=== PATIENT | female | born 2000 | race Two or more races ===

== ENCOUNTER 2022-04-14 20:24 | Emergency (ER) | payer MEDICAID, OTHER ==
[~2022-04-14] VITALS: Ht 165.1 cm; Wt 90.7 kg
--- NOTE | 2022-04-14 20:39 | NUR ---
DR. MEGAN DIEZ AT PT'S BEDSIDE
[2022-04-14] MEDS ORDERED: MORPHINE SULFATE INJ 4 MG/ML DISP.SYRIN ONE (20:45)
[2022-04-14] MEDS ORDERED: KETOROLAC TROMETHAMINE INJ 30 MG/ML VIAL ONE (20:45)
[2022-04-14] MEDS: MORPHINE SULFATE INJ 2 MG/ML DISP.SYRIN IM ONE (20:50)
[2022-04-14] MEDS: KETOROLAC TROMETHAMINE INJ 60 MG/2 ML VIAL IM ONE (20:50)
[2022-04-14] MEDS ORDERED: ONDANSETRON 4 MG TAB.RAPDIS ONE (20:57)
[2022-04-14] MEDS: ONDANSETRON 4 MG TAB.RAPDIS PO ONE (21:00)
[2022-04-14] MEDS ORDERED: IBUP-1955 PO (21:48)
[2022-04-14 21:52] VITALS: BP 98/61
--- NOTE | 2022-04-14 21:52 | NUR ---
Patient discharged to home in stable condition. Written and verbal after care instructions given. Patient verbalizes understanding of instruction.
[2022-04-15] MEDS ORDERED: CALC500T52 PO (17:33)
[2022-04-15] MEDS ORDERED: MULT-754 PO (17:33)
[2022-04-15] MEDS ORDERED: CHOL100043 PO (17:33)
== END 2022-04-14 21:52 | disposition home or self-care (01) ==
LOC: ER 20:26
DX: O90.89 Other complications of the puerperium, not elsewhere classified (principal); M54.50 Low back pain, unspecified
CPT/HCPCS: 96372 ×2; 99284; J1885; J2270; Q0162

== ENCOUNTER 2022-04-15 15:10 | Inpatient (IN) | payer MEDICAID, OTHER ==
[~2022-04-15] VITALS: Ht 165.1 cm; Wt 90.7 kg
[2022-04-15] MEDS: HEPARIN SODIUM, PORCINE 5000 UNITS/1 ML VIAL SQ SCH (02:17)
[~2022-04-15 15:10] MED LIST: IBUP-1955 PO
--- NOTE | 2022-04-15 16:14 | NUR ---
BIBS FOR C/O UPPER BACK PAIN 08/11. WAS SEEN FOR THE SAME REASON YESTERDAY. THE PATIENT GOT EPIDURAL 4 WEEKS AGO (WHEN GIVING ). THE PATIENT DENIES TRAUMA. WILL CONTINUE TO MONITOR THE PATIENT.
--- NOTE | 2022-04-15 16:15 | NUR ---
URINE COLLECTED AND SENT TO THE LAB
[2022-04-15] MEDS ORDERED: ONDANSETRON HCL/PF 4 MG/2 ML VIAL IVP ONE (16:30)
[2022-04-15] MEDS ORDERED: IV NS 0.9% 1,000 ML BAG IV ONE (16:30)
[2022-04-15] MEDS ORDERED: MORPHINE SULFATE INJ 4 MG/ML DISP.SYRIN IV ONE (16:30)
--- NOTE | 2022-04-15 16:33 | NUR ---
IV ESTABLIHSED R AC 20G. LABS DRAWN AND COLLECTED AT BEDSIDE.
[2022-04-15] MEDS ORDERED: ONDANSETRON HCL/PF 4 MG/2 ML VIAL ONE (16:36)
[2022-04-15] MEDS ORDERED: MORPHINE SULFATE INJ 4 MG/ML DISP.SYRIN ONE (16:37)
[2022-04-15 16:38] LABS: BILIRUBIN,URINE LARGE (NEGATIVE); COLOR,URINE DARK YELLOW (YELLOW); LEUKOCYTE ESTERASE ,URINE SMALL (NEGATIVE); NITRITE, URINE NEGATIVE (NEGATIVE); PH,URINE 6.5 (5.0-8.0); PROTEIN,URINE TRACE mg/dl (NEGATIVE); UGLUCOSE NEGATIVE (NEGATIVE)
--- NOTE | 2022-04-15 16:44 | NUR ---
URLTRASOUND AT BEDSIDE
[2022-04-15 16:45] LABS: BASOPHILS # (AUTO) 0.1 K/uL (0.0-0.2); BASOPHILS % (AUTO) 1.3 % (0.0-2.0); EOSINOPHILS % (AUTO) 3.3 % (0.0-6.0); HEMATOCRIT 37 % (33-45); HEMOGLOBIN 12.5 g/dL (11.5-14.8); LYMPHOCYTES # (AUTO) 1.9 K/uL (0.8-4.8); LYMPHOCYTES % (AUTO) 19.7 % (20.0-44.0); MEAN CORPUSCULAR HGB CONC 33 g/dl (31.0-36.0); MEAN CORPUSCULAR VOLUME 86 fL (82-100); MONOCYTES # (AUTO) 0.6 K/uL (0.1-1.30); MONOCYTES % (AUTO) 5.8 % (2.0-12.0); NEUTROPHILS # (AUTO) 6.8 K/uL (1.8-8.9); NEUTROPHILS % (AUTO) 69.9 % (43.0-81.0); PLATELET COUNT (AUTO) 385 K/uL (150-450); RED BLOOD CELL COUNT(AUTO) 4.34 MIL/uL (4.0-5.2); WHITE BLOOD COUNT (AUTO) 9.7 K/uL (4.3-11.0)
[2022-04-15 16:53] LABS: CALCIUM, SERUM 8.7 mg/dL (8.5-10.1); CREATININE 0.7 mg/dL (0.6-1.3); POTASSIUM 3.9 mmol/L (3.5-5.1)
[2022-04-15 16:57] LABS: BACTERIA,URINE Many /HPF (None Seen); SQUAMOUS EPITHELIAL CELL,UR Many /HPF (None Seen)
[2022-04-15 16:59] LABS: BILIRUBIN,DIRECT 4.5 mg/dL (0.0-0.2); BILIRUBIN,TOTAL 5.4 mg/dL (0.2-1.0); TOTAL PROTEIN, SERUM 7.1 g/dL (6.4-8.2)
[2022-04-15 17:05] LABS: ALBUMIN 3.5 g/dL (3.4-5.0)
--- NOTE | 2022-04-15 17:05 | NUR ---
COVID TEST COLLECTED AND SENT
[2022-04-15] MEDS ORDERED: CALC500T52 PO (17:33)
[2022-04-15] MEDS ORDERED: MULT-754 PO (17:33)
[2022-04-15] MEDS ORDERED: CHOL100043 PO (17:33)
[2022-04-15] MEDS ORDERED: ONDANSETRON HCL/PF 4 MG/2 ML VIAL IVP PRN (18:30)
[2022-04-15] MEDS ORDERED: ACETAMINOPHEN 325 MG TABLET PO PRN (18:30)
--- NOTE | 2022-04-15 21:11 | NUR ---
FAXED CT RESULT TO [facility] AT [phone]
--- NOTE | 2022-04-15 21:45 | NUR ---
LADARIUS DILLON SPOKE TO DR TRISTAN REGARDING PATIENT'S STATUS AND CT AND REC'D VERBAL AUTH TO KEEP THE PT HERE
[2022-04-16] MEDS ORDERED: CEFTRIAXONE 1 G in IV D5W 50 ML IV SCH ×2 (00:58→23:00)
--- NOTE | 2022-04-16 00:59 | NUR ---
REPORT GIVEN TO RN
--- NOTE | 2022-04-16 01:02 | NUR ---
PATIENT BEING TRANSFERRED TO [facility]
--- NOTE | 2022-04-16 01:40 | NUR ---
ADMISSION 21 years old female A/O x4. Skin intact, ambulatory. [place] to room, unit, staff. Education given on use of call light, verbalized understanding.
[2022-04-16] MEDS: IV NS 0.9% 1,000 ML IV SCH ×2 (01:42→18:48)
[2022-04-16 01:46] VITALS: BP 103/60
[2022-04-16] MEDS ORDERED: CEFTRIAXONE 1 G VIAL ONE (02:06)
--- NOTE | 2022-04-16 02:18 | NUR ---
HEPARIN INJECTION Heparin injection non administered, patient plan possible MRCP. Order Heparin inject due at 2100 04/15/22 and not administer in ER. Patient arrived to unit at 0140 on 04/16/22.
[2022-04-16 06:16] LABS: BILIRUBIN,TOTAL 4.6 mg/dL (0.2-1.0); CALCIUM, SERUM 8.4 mg/dL (8.5-10.1); CREATININE 0.7 mg/dL (0.6-1.3); MAGNESIUM 2.1 mg/dL (1.8-2.4); PHOSPHORUS 4.4 mg/dL (2.5-4.9); POTASSIUM 3.9 mmol/L (3.5-5.1); TOTAL PROTEIN, SERUM 6.4 g/dL (6.4-8.2)
--- NOTE | 2022-04-16 06:33 | NUR ---
END OF SHIFT REPORT Patient is A/O x4. On room air, in no acute distress. Ambulatory. No c/o pain at this time. On IV abx. Afebrile. IVF infusing. Patient last time ate and drink yesterday 10pm 04/15/22. No diet order was given on admission. Plan possible MRCP. Will endorse to oncoming RN.
[2022-04-16 06:36] LABS: BASOPHILS # (AUTO) 0.1 K/uL (0.0-0.2); EOSINOPHILS % (AUTO) 5.5 % (0.0-6.0); HEMATOCRIT 36 % (33-45); HEMOGLOBIN 12.5 g/dL (11.5-14.8); LYMPHOCYTES % (AUTO) 22.1 % (20.0-44.0); MEAN CORPUSCULAR HGB CONC 35 g/dl (31.0-36.0); MEAN CORPUSCULAR VOLUME 86 fL (82-100); MONOCYTES # (AUTO) 0.5 K/uL (0.1-1.30); MONOCYTES % (AUTO) 5.2 % (2.0-12.0); NEUTROPHILS # (AUTO) 5.8 K/uL (1.8-8.9); NEUTROPHILS % (AUTO) 66.2 % (43.0-81.0); PLATELET COUNT (AUTO) 344 K/uL (150-450); RED BLOOD CELL COUNT(AUTO) 4.17 MIL/uL (4.0-5.2); WHITE BLOOD COUNT (AUTO) 8.8 K/uL (4.3-11.0)
--- NOTE | 2022-04-16 07:18 | NUR ---
RN OPENING NOTES RECEIVED PATIENT IN BED, AWAKE, A/O X4, VERBALLY RESPONSIVE, NO SIGNS OF ACUTE DISTRESS NOTED. ON ROOM AIR, BREATHING EVEN AND UNLABORED. NO SOB NOTED. NOTED WITH IV ACCESS ON LEFT ANTECUBITAL AREA #20G, INTACT AND PATENT WITH NS @75 ML/HR RUNNING. DENIES ANY PAIN AT THIS TIME. ON NPO FOR MRCP. SAFETY MEASURE MAINTAINED. WILL CONTINUE TO MONITOR PATIENT.
[2022-04-16 08:00] VITALS: BP 102/54
[2022-04-16] MEDS: HEPARIN SODIUM, PORCINE 5000 UNITS/1 ML VIAL SQ SCH ×2 (09:00→22:36)
--- NOTE | 2022-04-16 09:08 | NUR ---
RN NOTE ANTICOAGULANT NOT GIVEN, AWAITING SURGERY.
--- NOTE | 2022-04-16 10:46 | NUR ---
RN NOTES PATIENT PICKED UP FOR MRCP VIA W/C.
--- NOTE | 2022-04-16 11:13 | NUR ---
RN NOTES PATIENT BACK FROM [facility].
[2022-04-16] MEDS: MORPHINE SULFATE INJ 2 MG/ML DISP.SYRIN IV PRN (11:16)
--- NOTE | 2022-04-16 11:16 | NUR ---
RN NOTE PATIENT C/O 8/10 BACK PAIN, MORPHINE 2MG IVP GIVEN. WILL MONITOR PATIENT.
--- NOTE | 2022-04-16 15:30 | NUR ---
RN NOTE SPOKE WITH DR. STANLEY REGARDING PATIENT'S PLAN FOR SURGERY (APPENDECTOMY), PER DR. STANLEY HE CAN'T SEE PATIENT UNLESS PT IS SEEN BY GI MD FIRST FOR ERCP TO REMOVE PT'S GALLSTONES.
[2022-04-16 16:00] VITALS: BP 107/64
--- NOTE | 2022-04-16 18:46 | NUR ---
RN CLOSING NOTES PATIENT IN BED, AWAKE, A/O X4, VERBALLY RESPONSIVE, NO SIGNS OF ACUTE DISTRESS NOTED. REMAINS STABLE ON ROOM AIR, BREATHING EVEN AND UNLABORED. NO SOB NOTED. IV ACCESS ON LEFT ANTECUBITAL AREA #20G, INTACT AND PATENT WITH NS @75 ML/HR RUNNING. REMAINS ON NPO. SAFETY MEASURE MAINTAINED. WILL ENDORSE TO NEXT SHIFT FOR CONTINUITY OF CARE.
--- NOTE | 2022-04-16 19:30 | NUR ---
RN OPENING NOTES: RECEIVED PATIENT AWAKE IN BED, A/OX4 AMBULATORY AND ABLE TO MAKE NEEDS KNOWN ON ROOM AIR SATURATING WELL, ON PAIN MANAGEMENT, PATIENT KEPT CLEAN AND DRY ALL NEEDS MET WILL CONTINUE TO MONITOR.
[2022-04-16 20:00] VITALS: BP 116/74
--- NOTE | 2022-04-17 06:30 | NUR ---
RN CLOSING NOTES: PATIENT SLEEP IN BED COMFORTABLY, ON ROOM AIR SATURATING WELL, NO COMPLAIN OF PAIN AND DISCOMFORT AT THIS TIME, KEPT CLEAN AND DRY, ALL NEEDS MET ENDORSE TO INCOMING SHIFT.
--- NOTE | 2022-04-17 07:30 | NUR ---
MS RN OPENING NOTES: RECEIVED PATIENT IN BED ASLEEP, A/O X4. ABLE TO MAKE NEEDS KNOWN. NO SOB OR CARDIAC DISTRESS NOTED, AFEBRILE, DENIES PAIN AT THIS TIME. WITH IV ACCESS ON LFA G#20 NS @75ML/HR INFUSING WELL. PATENT AND INTACT. MAINTAINED NPO. SAFETY PRECAUTIONS MAINTAINED: BED LOCKED AND IN LOWEST POSITION. CALL LIGHT IN EASY REACH FOR HELP. WILL MONITOR FOR ANY SIGNIFICANT CHANGES.
[2022-04-17 08:00] VITALS: BP 104/59
[2022-04-17] MEDS: HEPARIN SODIUM, PORCINE 5000 UNITS/1 ML VIAL SQ SCH ×2 (09:15→20:51)
[2022-04-17 11:05] LABS: ALBUMIN 3.2 g/dL (3.4-5.0); BILIRUBIN,DIRECT 1.5 mg/dL (0.0-0.2); BILIRUBIN,TOTAL 2.5 mg/dL (0.2-1.0); TOTAL PROTEIN, SERUM 7.2 g/dL (6.4-8.2)
[2022-04-17] MEDS: CEFEPIME 2 GM in IV D5W 100 ML IV SCH ×2 (11:28→22:25)
--- NOTE | 2022-04-17 18:34 | NUR ---
MS RN CLOSING NOTES: PATIENT IN BED AWAKE, ALERT AND ORIENTED X 4 ABLE TO MAKE NEEDS KNOWN. NO SOB OR CARDIAC DISTRESS NOTED, AFEBRILE,DENIES ANY PAIN AT THIS TIME. IV ACCESS ON LFA G#20 @75ML/HR PATENT, INTACT AND SALINE LOCKED. SAFETY PRECAUTIONS MAINTAINED: BED LOCKED AND IN LOWEST POSITION, SIDE RAILS UP X 2 AND CALL LIGHT IN EASY REACH FOR HELP/ASSISTANCE. ENDORSED TO NEXT SHIFT FOR ROLA.
[2022-04-17 20:00] VITALS: BP 98/58
--- NOTE | 2022-04-17 20:08 | NUR ---
MS RN OPENING NOTES: RECEIVED PATIENT AWAKE IN BE, ACCOMPANIED BY FAMILY, BED IN LOW POSITION CALL LIGHTS WITHIN REACH, NO COMPLAIN OF PAIN AND DISCOMFORT AT THIS TIME, ON ROOM AIR SATURATING WELL, PATIENT IS A/OX4 BRP, ABLE TO MAKE NEEDS KNOWN, PATIENT KEPT CLEAN AND DRY ALL NEEDSWILL CONTINUE TO MONITOR..
--- NOTE | 2022-04-18 07:00 | NUR ---
RN CLOSING NOTES: PATIENT SLEEP IN BED COMFORTABLY BED IN LOW POSITION CALL LIGHTS WITHIN REACH, ON ROOM AIR SATURATING WELL, PATIENT IS A/OX4 AMBULATORY ABLE TO MAKE NEEDS KNOWN , PATIENT KEPT CLEAN AND DRY ALL NEEDS MET ENDORSE TO INCOMING SHIFT.
[2022-04-18 07:08] LABS: ALBUMIN 2.9 g/dL (3.4-5.0); BILIRUBIN,DIRECT 0.7 mg/dL (0.0-0.2); BILIRUBIN,TOTAL 1.2 mg/dL (0.2-1.0); TOTAL PROTEIN, SERUM 6.7 g/dL (6.4-8.2)
--- NOTE | 2022-04-18 07:28 | NUR ---
MS RN OPENING NOTES: RECEIVED PATIENT IN BED ASLEEP AND EASILY TO AROUSED WITH STIMULI, A/O X4. ABLE TO MAKE NEEDS KNOWN. NO SOB OR CARDIAC DISTRESS NOTED, AFEBRILE, DENIES PAIN AT THIS TIME. WITH IV ACCESS ON LFA G#20 SALINE LOCKED. PATENT AND INTACT. SAFETY PRECAUTIONS MAINTAINED: BED LOCKED AND IN LOWEST POSITION. CALL LIGHT IN EASY REACH FOR HELP. WILL MONITOR FOR ANY SIGNIFICANT CHANGES.
[2022-04-18 08:31] VITALS: BP 90/56
[2022-04-18] MEDS: HEPARIN SODIUM, PORCINE 5000 UNITS/1 ML VIAL SQ SCH ×2 (09:00→21:00)
[2022-04-18] MEDS: CEFEPIME 2 GM in IV D5W 100 ML IV SCH ×2 (11:03→22:23)
[2022-04-18] MEDS ORDERED: ANESTHESIA TRAY IN PYXIS 1 EA TRAY MC ONE (15:22)
[2022-04-18 16:03] VITALS: BP 96/61
--- NOTE | 2022-04-18 16:21 | NUR ---
RN NOTES: RECEIVED A CALL FROM DR. JUAREZ (ANESTHESIOLOGIST), REMINDED PATIENT NPO POST MIDNIGHT , SECURE SIGNED CONSENT.
--- NOTE | 2022-04-18 18:46 | NUR ---
MS RN CLOSING NOTES: PATIENT IN BED AWAKE, A/O X4. ABLE TO MAKE NEEDS KNOWN. NO SOB OR CARDIAC DISTRESS NOTED, AFEBRILE, COMPLAINED OF 3/10 BACK PAIN, PAIN MANAGEMENT GIVEN AND VERBALIZED RELIEF. WITH IV ACCESS ON RAC G#20 SALINE LOCKED. PATENT AND INTACT. SAFETY PRECAUTIONS MAINTAINED: BED LOCKED AND IN LOWEST POSITION. CALL LIGHT IN EASY REACH FOR HELP. KEPT RESTED AND COMFORTABLE. WILL ENDORSE TO SPECIALTY COOK NURSE FOR CONTINUITY OF CARE.
--- NOTE | 2022-04-18 19:34 | NUR ---
MS RN OPENING NOTES: PATIENT IN BED AWAKE, A/O X4. ABLE TO MAKE NEEDS KNOWN. NO SOB OR CARDIAC DISTRESS NOTED, AFEBRILE,. WITH IV ACCESS ON RAC G#20 SALINE LOCKED. PATENT AND INTACT. SAFETY PRECAUTIONS MAINTAINED: BED LOCKED AND IN LOWEST POSITION. CALL LIGHT IN EASY REACH FOR HELP. KEPT RESTED AND COMFORTABLE. WILL CONTINUE TO MONITOR.
[2022-04-18 20:00] VITALS: BP 102/61
[2022-04-19 06:28] LABS: BASOPHILS # (AUTO) 0.1 K/uL (0.0-0.2); BASOPHILS % (AUTO) 0.9 % (0.0-2.0); EOSINOPHILS % (AUTO) 7.1 % (0.0-6.0); HEMATOCRIT 36 % (33-45); HEMOGLOBIN 12.1 g/dL (11.5-14.8); LYMPHOCYTES # (AUTO) 2.3 K/uL (0.8-4.8); LYMPHOCYTES % (AUTO) 26.3 % (20.0-44.0); MEAN CORPUSCULAR HGB CONC 34 g/dl (31.0-36.0); MEAN CORPUSCULAR VOLUME 86 fL (82-100); MONOCYTES # (AUTO) 0.5 K/uL (0.1-1.30); MONOCYTES % (AUTO) 5.9 % (2.0-12.0); NEUTROPHILS # (AUTO) 5.2 K/uL (1.8-8.9); NEUTROPHILS % (AUTO) 59.8 % (43.0-81.0); PLATELET COUNT (AUTO) 324 K/uL (150-450); RED BLOOD CELL COUNT(AUTO) 4.13 MIL/uL (4.0-5.2); WHITE BLOOD COUNT (AUTO) 8.7 K/uL (4.3-11.0)
--- NOTE | 2022-04-19 06:49 | NUR ---
MS RN CLOSING NOTES: PATIENT IN BED AWAKE, A/O X4. ABLE TO MAKE NEEDS KNOWN. NO SOB OR CARDIAC DISTRESS NOTED, AFEBRILE,. WITH IV ACCESS ON RAC G#20 SALINE LOCKED. PATENT AND INTACT. PT NPO SINCE MIDNIGHT FOR ERCP TODAY @ 9AM WITH DR BROWN. ALL DUE MEDS GIVEN AND TOLERATED WELL.SAFETY PRECAUTIONS MAINTAINED: BED LOCKED AND IN LOWEST POSITION. CALL LIGHT IN EASY REACH FOR HELP. KEPT RESTED AND COMFORTABLE. WILL ENDORSE CARE TO DAY SHIFT NURSE.
[2022-04-19 07:18] LABS: ALBUMIN 2.9 g/dL (3.4-5.0); BILIRUBIN,DIRECT 0.5 mg/dL (0.0-0.2); BILIRUBIN,TOTAL 0.9 mg/dL (0.2-1.0); CALCIUM, SERUM 8.4 mg/dL (8.5-10.1); CREATININE 0.6 mg/dL (0.6-1.3); POTASSIUM 4.1 mmol/L (3.5-5.1); TOTAL PROTEIN, SERUM 6.7 g/dL (6.4-8.2)
--- NOTE | 2022-04-19 07:35 | NUR ---
MS RN NOTES PATIENT IN BED, ALERT ORIENTED X 4, NO ACUTE DISTRESS NOTED.BREATHING UNLABORED. SAFETY MEASURES IN PLACE, CALL LIGHT WITHIN REACH. WILL CONTINUE TO MONITOR ACCORDINGLY.
[2022-04-19 08:00] VITALS: BP 94/54
--- NOTE | 2022-04-19 08:10 | NUR ---
PATIENT SEEN AND EVALUATED BY DR ARCELIA EDWARDS WITH NO NEW ORDER MADE.
--- NOTE | 2022-04-19 08:15 | NUR ---
HEPARIN HELD DUE TO PROCEDURE
--- NOTE | 2022-04-19 08:35 | NUR ---
PATIENT TRANSPORTED FOR ERCP IN STABLE CONDITION
[2022-04-19] MEDS: HEPARIN SODIUM, PORCINE 5000 UNITS/1 ML VIAL SQ SCH ×2 (08:40→21:13)
[2022-04-19] MEDS ORDERED: IOHEXOL 240MG/ML 50 ML IV ONE (09:42)
[2022-04-19] MEDS ORDERED: INDOMETHACIN 50 MG SUPP.RECT ONE (09:43)
--- NOTE | 2022-04-19 12:15 | NUR ---
PATIENT CAME BACK FROM RECOVERY ROOM IN STABLE CONDITION
[2022-04-19 12:21] VITALS: BP 100/66
[2022-04-19] MEDS: CEFEPIME 2 GM in IV D5W 100 ML IV SCH ×2 (12:29→23:23)
[2022-04-19 12:36] VITALS: BP 105/67
[2022-04-19 12:51] VITALS: BP 104/61
[2022-04-19 13:20] VITALS: BP 105/66
[2022-04-19] MEDS: IV LR 1000 ML 1,000 ML IV PRN (17:36)
--- NOTE | 2022-04-19 18:58 | NUR ---
MS RN NOTES PATIENT IN BED, ALERT ORIENTED X 4,VITAL SIGNS REMAIN STABLE TROUGH OUT THE SHIFT. NO ACUTE DISTRESS NOTED.BREATHING UNLABORED. SAFETY MEASURES IN PLACE, CALL LIGHT WITHIN REACH. NEEDS ATTENDED AND ANTICIPATED.WILL ENDORSE TO NIGHT NURSE FOR CONTINUITY OF CARE
--- NOTE | 2022-04-19 19:53 | NUR ---
MS RN OPENING NOTES: RECEIVED PATIENT AWAKE IN BED, BED IN LOW POSITION CALL LIGHTS WITHIN REACH, NO COMPLAIN OF PAIN AND DISCOMFORT AT THIS TIME, ON ROOM AIR SATURATING WELL, PATIENT IS A/OX4 ABLE TO MAKE NEEDS KNOWN , A/OX4 AMBULATORY, S/P ERCP, WITH IV LINE AT [id number] WITH ONGOING PLR 100ML @ 100ML/HR INFUSING WELL, PATIENT KEPT CLEAN AND DRY ALL NEEDS MET WILL CONTINUE TO MONITOR.
[2022-04-19 23:41] VITALS: BP 105/59
--- NOTE | 2022-04-20 06:10 | NUR ---
RN CLOSING NOTES: PATIENT SLEEP IN BED COMFORTABLY AROUSABLE TO VERBAL STIMULI, BED IN LOW POSITION CALL LIGHTS WITHIN REACH, ON ROOM AIR SATURATING WELL, PATIENT IS A/OX4 AMBULATORY WITH IV LINE AT LAC#20 WITH ONGOING PLR@100ML/HR INFUSING WELL, PATIENT KEPT CLEAN AND DRY ALL NEEDS ATTENDED, ENDORSE TO INCOMING SHIFT.
[2022-04-20 06:54] LABS: ALBUMIN 2.8 g/dL (3.4-5.0); BILIRUBIN,DIRECT 0.4 mg/dL (0.0-0.2); BILIRUBIN,TOTAL 0.9 mg/dL (0.2-1.0); TOTAL PROTEIN, SERUM 6.2 g/dL (6.4-8.2)
[2022-04-20 06:59] LABS: AMYLASE 88 U/L (25-115); LIPASE 404 U/L (73-393)
--- NOTE | 2022-04-20 07:23 | NUR ---
RN OPENING NOTES RECEIVED PATIENT IN BED, AWAKE, A/O X4, VERBALLY RESPONSIVE, NO SIGNS OF ACUTE DISTRESS NOTED. STABLE ON ROOM AIR, BREATHING EVEN AND UNLABORED. NO SOB NOTED. NOTED WITH IV ACCESS ON RIGHT ANTECUBITAL AREA #20G, INTACT AND PATENT WITH PLAIN LR @100 ML/HR RUNNING. SAFETY MEASURE MAINTAINED. WILL CONTINUE TO MONITOR PATIENT.
[2022-04-20] MEDS: IV LR 1000 ML 1,000 ML IV PRN (07:27)
[2022-04-20] MEDS: MORPHINE SULFATE INJ 2 MG/ML DISP.SYRIN IV PRN (07:35)
[2022-04-20 08:00] VITALS: BP 114/6
[2022-04-20] MEDS: HEPARIN SODIUM, PORCINE 5000 UNITS/1 ML VIAL SQ SCH ×2 (08:34→21:00)
[2022-04-20 09:06] LABS: CALCIUM, SERUM 8.8 mg/dL (8.5-10.1); CREATININE 0.5 mg/dL (0.6-1.3); POTASSIUM 3.9 mmol/L (3.5-5.1)
[2022-04-20 09:23] LABS: ALBUMIN 2.8 g/dL (3.4-5.0); TOTAL PROTEIN, SERUM 6.2 g/dL (6.4-8.2)
[2022-04-20] MEDS: CEFEPIME 2 GM in IV D5W 100 ML IV SCH ×2 (10:52→23:27)
--- NOTE | 2022-04-20 12:30 | NUR ---
RN NOTES SEEN BY DR. STANLEY WITH ORDER RECEIVED FOR DIAGNOSTIC LAPAROSCOPY POSSIBLE APPENDECTOMY, CHOLECYSTECTOMY AND POSS EXPLOR LAP TOMORROW.
[2022-04-20 16:00] VITALS: BP 116/63
--- NOTE | 2022-04-20 18:45 | NUR ---
RN CLOSING NOTES PATIENT IN BED AWAKE, NO SIGNS OF ACUTE DISTRESS NOTED. STABLE ON ROOM AIR, NO SOB NOTED. IVF OF LR @ 100ML/HR ONGOING. DENIES PAIN AT THIS TIME. SAFETY MEASURE MAINTAINED. WILL ENDORSE TO NEXT SHIFT.
[2022-04-20 20:00] VITALS: BP 90/54
--- NOTE | 2022-04-20 20:00 | NUR ---
MS RN OPENING NOTES: RECEIVED PATIENT AWAKE IN BED, BED IN LOW POSITION CALL LIGHTS WITHIN REACH, NO COMPLAIN OF PAIN AND DISCOMFORT AT THIS TIME, ON ROOM AIR SATURATING WELL, PATIENT IS A/OX4 AMBULATORY, ABLE TO MAKE NEEDS KNOWN, ON NPO PRIOR FAM PROCEDURE WITH IV LINE AT RAC#20 WITH ONGOING PLR@100ML/HR INFUSING WELL, AT 10AM PATIENT WAS AWARE , KEPT CLEAN AND DRY ALL NEEDS MET WILL CONTINUE TO MONITOR
--- NOTE | 2022-04-20 23:48 | NUR ---
RN NOTES; PATIENT WAS NPO AND SCHEDULE PROCEDURE TOMMOROW
[2022-04-21] MEDS: IV LR 1000 ML 1,000 ML IV PRN (03:26)
--- NOTE | 2022-04-21 06:20 | NUR ---
RN CLOSING NOTES: PATIENT SLEEP IN BED COMFORTABLY, BED IN LOW POSITION. CALL LIGHTS WITHIN REACH, NO COMPLAIN OF PAIN AND DISCOMFORT AT THIS TIME , ON ROOM AIR SATURATING WELL, ON NPO, FOR PROCEDURE , WITH RAC#20 WITH ONGOING PLAIN LACTATED RINGER AT 100ML/HR INFUSING WELL, ON ROOM AIR SATURATING WELL, PATIENT IS A/OX4 AMBULATORY ABLE TO MAKE NEEDS KNOWN, KEPT CLEAN AND DRY ALL NEEDS ATTENDED ENDORSE TO INCOMING SHIFT.
[2022-04-21 06:39] LABS: BASOPHILS # (AUTO) 0.1 K/uL (0.0-0.2); BASOPHILS % (AUTO) 0.9 % (0.0-2.0); EOSINOPHILS % (AUTO) 2.8 % (0.0-6.0); HEMATOCRIT 28 % (33-45); HEMOGLOBIN 9.5 g/dL (11.5-14.8); LYMPHOCYTES # (AUTO) 2.7 K/uL (0.8-4.8); LYMPHOCYTES % (AUTO) 34.8 % (20.0-44.0); MEAN CORPUSCULAR HGB CONC 34 g/dl (31.0-36.0); MEAN CORPUSCULAR VOLUME 86 fL (82-100); MONOCYTES # (AUTO) 0.5 K/uL (0.1-1.30); MONOCYTES % (AUTO) 5.8 % (2.0-12.0); NEUTROPHILS # (AUTO) 4.4 K/uL (1.8-8.9); NEUTROPHILS % (AUTO) 55.7 % (43.0-81.0); PLATELET COUNT (AUTO) 290 K/uL (150-450); RED BLOOD CELL COUNT(AUTO) 3.28 MIL/uL (4.0-5.2); WHITE BLOOD COUNT (AUTO) 7.8 K/uL (4.3-11.0)
[2022-04-21 07:21] LABS: CALCIUM, SERUM 8.6 mg/dL (8.5-10.1); CREATININE 0.6 mg/dL (0.6-1.3)
[2022-04-21 07:28] LABS: BILIRUBIN,DIRECT 0.4 mg/dL (0.0-0.2); BILIRUBIN,TOTAL 0.8 mg/dL (0.2-1.0); TOTAL PROTEIN, SERUM 6.3 g/dL (6.4-8.2)
[2022-04-21 08:00] VITALS: BP 90/56
[2022-04-21] MEDS: HEPARIN SODIUM, PORCINE 5000 UNITS/1 ML VIAL SQ SCH ×2 (08:02→20:04)
--- NOTE | 2022-04-21 08:45 | NUR ---
MS RN OPENING NOTES: RECEIVED PATIENT AWAKE IN BED, BED IN LOW POSITION CALL LIGHTS WITHIN REACH, NO COMPLAIN OF PAIN AND DISCOMFORT AT THIS TIME, ON ROOM AIR SATURATING WELL, PATIENT IS A/OX4 AMBULATORY, ABLE TO MAKE NEEDS KNOWN, ON NPO PRIOR TO PROCEDURE WITH IV LINE AT RAC#20 WITH ONGOING PLR@100ML/HR INFUSING WELL. WILL CONTINUE TO MONITOR PATIENT.
[2022-04-21] MEDS ORDERED: HYDROMORPHONE INJ 2 MG/ML DISP.SYRIN ONE (09:11)
[2022-04-21] MEDS ORDERED: ROCURONIUM BROMIDE 50 MG/5 ML ONE (09:11)
[2022-04-21] MEDS ORDERED: LIDOCAINE 1% INJ 50 ML MDV IJ ONE (09:14)
[2022-04-21] MEDS ORDERED: BUPIVACAINE MPF 0.5% W/EPI INJ 30 ML VIAL ONE (09:14)
[2022-04-21 10:25] LABS: C-REACTIVE PROTEIN 0.8 mg/dL (0.0-0.9)
[2022-04-21] MEDS ORDERED: BACITRACIN ZINC OINT (15 GM) 15 GM TUBE TP ONE (10:52)
--- NOTE | 2022-04-21 12:25 | NUR ---
MS RN NOTES PATIENT BACK FROM OR; MEDICALLY STABLE. VITAL SIGNS WNL: BP 96/56, HR 72, TEMP 97.9 O2 97% ON ROOM AIR, RR 19 WILL CONTINUE TO MONITOR PATIENT.
[2022-04-21] MEDS: CEFEPIME 2 GM in IV D5W 100 ML IV SCH ×2 (12:41→23:14)
[2022-04-21 16:00] VITALS: BP 96/56
--- NOTE | 2022-04-21 18:47 | NUR ---
MS RN CLOSING NOTES: PATIENT REMAINS IN BED, AWAKE, A/O X4. PATIENT ON ROOM AIR; BREATHING EVEN AND UNLABORED; NO SOB NOTED AT THIS TIME. COMPLAINING OF MILD PAIN IN THE ABDOMEN. WITH IV LINE AT RAC#20 WITH ONGOING PLR@100ML/HR INFUSING WELL. ALL NEEDS ATTENDED DURING THE DAY. SAFETY PRECAUTIONS IN PLACE; BED IN LOW POSITION AND LOCKED, RAILS UP X2, CALL LIGHT WITHIN REACH. WILL CONTINUE TO MONITOR PATIENT.
--- NOTE | 2022-04-21 19:30 | NUR ---
RN OPENING NOTES RECEIVED PT IN BED, AWAKE, WATCHING TV. AOx4, ABLE TO MAKE NEEDS KNOWN. ON RA AND TOLERATING WELL. NO SOB NOTED. NO S/SX OF RESPIRATORY DISTRESS NOTED. IV ACCESS IN LAC #20 RUNNING LR @ 150 ML/HR. SAFETY PRECAUTIONS IN PLACE: BED IN LOWEST, LOCKED POSITION, SIDERAILS UPx2, AND BRAKES ON. TABLE AND CALL LIGHT WITHIN REACH. WILL CONTINUE TO MONITOR.
[2022-04-21 20:00] VITALS: BP 93/50
[2022-04-21] MEDS: MORPHINE SULFATE INJ 2 MG/ML DISP.SYRIN IV PRN (20:03)
--- NOTE | 2022-04-21 20:03 | NUR ---
RN NOTES ADMINISTERED MORPHINE FOR PAIN PER MD ORDER. VS WNL. WILL CONTINUE TO MONITOR.
[2022-04-22] MEDS: MORPHINE SULFATE INJ 2 MG/ML DISP.SYRIN IV PRN ×3 (02:58→17:59)
--- NOTE | 2022-04-22 02:59 | NUR ---
RN NOTES ADMINISTERED MORPHINE FOR PAIN PER MD ORDER. VS WNL. WILL CONTINUE TO MONITOR.
[2022-04-22] MEDS: IV LR 1000 ML 1,000 ML IV PRN ×3 (03:44→23:23)
[2022-04-22 06:42] LABS: BASOPHILS # (AUTO) 0.1 K/uL (0.0-0.2); BASOPHILS % (AUTO) 0.6 % (0.0-2.0); EOSINOPHILS % (AUTO) 0.9 % (0.0-6.0); HEMATOCRIT 25 % (33-45); HEMOGLOBIN 8.6 g/dL (11.5-14.8); LYMPHOCYTES # (AUTO) 2.4 K/uL (0.8-4.8); LYMPHOCYTES % (AUTO) 25.8 % (20.0-44.0); MEAN CORPUSCULAR HGB CONC 34 g/dl (31.0-36.0); MEAN CORPUSCULAR VOLUME 86 fL (82-100); MONOCYTES # (AUTO) 0.5 K/uL (0.1-1.30); MONOCYTES % (AUTO) 5.6 % (2.0-12.0); NEUTROPHILS # (AUTO) 6.2 K/uL (1.8-8.9); NEUTROPHILS % (AUTO) 67.1 % (43.0-81.0); PLATELET COUNT (AUTO) 265 K/uL (150-450); RED BLOOD CELL COUNT(AUTO) 2.95 MIL/uL (4.0-5.2); WHITE BLOOD COUNT (AUTO) 9.3 K/uL (4.3-11.0)
--- NOTE | 2022-04-22 06:49 | NUR ---
RN CLOSING NOTES PT IN BED, AWAKE, WATCHING TV. AOx4, ABLE TO MAKE NEEDS KNOWN. ON RA AND TOLERATING WELL. NO SOB NOTED. NO S/SX OF RESPIRATORY DISTRESS NOTED. IV ACCESS IN LAC #20 RUNNING LR @ 150 ML/HR. ALL ORDERS CARRIED OUT. ALL NEEDS MET. TREATED PAIN THROUGHOUT SHIFT. PT KEPT CLEAN AND DRY. SAFETY PRECAUTIONS IN PLACE: BED IN LOWEST, LOCKED POSITION, SIDERAILS UPx2, AND BRAKES ON. TABLE AND CALL LIGHT WITHIN REACH. WILL ENDORSE TO ONCOMING SHIFT FOR ROLA.
[2022-04-22 07:05] LABS: C-REACTIVE PROTEIN 0.6 mg/dL (0.0-0.9)
--- NOTE | 2022-04-22 07:13 | NUR ---
RN NOTES ADMINISTERED MORPHINE FOR PAIN PER MD ORDER. VS WNL. WILL CONTINUE TO MONITOR.
[2022-04-22 07:29] LABS: ALBUMIN 2.9 g/dL (3.4-5.0); BILIRUBIN,DIRECT 0.4 mg/dL (0.0-0.2); BILIRUBIN,TOTAL 0.9 mg/dL (0.2-1.0); CALCIUM, SERUM 8.7 mg/dL (8.5-10.1); CREATININE 0.6 mg/dL (0.6-1.3); MAGNESIUM 1.9 mg/dL (1.8-2.4); POTASSIUM 3.8 mmol/L (3.5-5.1); TOTAL PROTEIN, SERUM 6.1 g/dL (6.4-8.2)
--- NOTE | 2022-04-22 07:30 | NUR ---
RN MS NOTES PT IN BED, AWAKE, ALERT AND ORIENTED, NO COMPLAIN OF PAIN OR ANY DISCOMFORT AT THIS TIME, RESPIRATIONS NORMAL, CALL LIGHT WITHIN REACH, IV FLUIDS INFUSING WELL, NEEDS ATTENDED.
[2022-04-22 08:00] VITALS: BP 101/63
[2022-04-22] MEDS: HEPARIN SODIUM, PORCINE 5000 UNITS/1 ML VIAL SQ SCH ×2 (09:31→20:14)
[2022-04-22] MEDS: CEFEPIME 2 GM in IV D5W 100 ML IV SCH ×2 (11:32→23:23)
[2022-04-22 16:00] VITALS: BP 95/60
--- NOTE | 2022-04-22 16:19 | NUR ---
RN MS NOTES CONTINUITY OF CARE ENDORSED TO AN RINCON.
[2022-04-22] MEDS ORDERED: CIPR-262 PO (17:27)
--- NOTE | 2022-04-22 18:13 | NUR ---
RESUME CONTINUITY OF CARE FROM MCKENZIE MORALES. VSS, AFEBRILE, A/O X4. IV ACCESS ON R AC #20 G, LR RUNNING AT 150 ML/HR, INTACT AND PATENT. PAIN MANAGED WITH MORPHINE. SAFETY MEASURES MAINTAINED. BED IN LOWEST POSITION, BRAKES LOCKED. SIDE RAILS UP X2. CALL LIGHT WITHIN REACH. WILL ENDORSE CONTINUITY OF CARE TO ONCOMING SHIFT.
--- NOTE | 2022-04-22 19:40 | NUR ---
MS RN OPENING NOTES RECEIVED PT LYING IN BED AWAKE. BOYFRIEND AND FRIEND ON BEDSIDE. A/O X4. BREATHING EVEN AND NON-LABORED ON ROOM AIR. C/O PAIN ON HER RIGHT ARM WHEN MOVING, REPOSITIONED. HAS RIGHT ANTECUBITAL IV ACCESS #20G WITH LR RUNNING AT 150 ML/HR. NO S/S OF INFILTRATION NOTED. SAFETY PRECAUTIONS IN PLACE. WILL CONTINUE PLAN OF CARE.
[2022-04-22 20:00] VITALS: BP 99/53
[2022-04-23] MEDS: MORPHINE SULFATE INJ 2 MG/ML DISP.SYRIN IV PRN (04:02)
--- NOTE | 2022-04-23 06:53 | NUR ---
MS RN CLOSING NOTES PT LYING IN BED WITH EYES CLOSED. EASY TO AROUSE. A/O X4. NO SOB OR NOTED. TOLERATING ROOM AIR WELL. PRN O2 AT 2 LPM VIA NC FOR SUPPORT. DENIES PAIN OR DISCOMFORT AT THIS TIME. AFEBRILE. HAS LEFT HAND IV ACCESS #22G WITH LR RUNNING AT 150 ML/HR. INTACT, PATENT AND FLUSHING. ALL NEEDS ATTENDED AND ANTICIPATED. SAFETY PRECAUTIONS IN PLACE: BED LOW AND LOCKED, SIDE RAILS UP X2, CALL LIGHT WITHIN REACH.
[2022-04-23 06:56] LABS: CALCIUM, SERUM 8.6 mg/dL (8.5-10.1); CREATININE 0.5 mg/dL (0.6-1.3); POTASSIUM 3.7 mmol/L (3.5-5.1)
[2022-04-23 07:03] LABS: ALBUMIN 2.8 g/dL (3.4-5.0); BILIRUBIN,TOTAL 0.4 mg/dL (0.2-1.0); TOTAL PROTEIN, SERUM 6.2 g/dL (6.4-8.2)
--- NOTE | 2022-04-23 07:30 | NUR ---
RN OPENING NOTE RECEIVED PATIENT IN BED, AWAKE AND ALERT. A/OX4. NO S/SX OF DISTRESS OBSERVED UPON ASSESSMENT. DENIES ANY PAIN AT THIS TIME. ALL SAFETY MEASURES IN PLACE. BED IN LOWEST POSITION, BRAKES LOCKED, SIDERAIL UP X2. CALL LIGHT WITHIN REACH. WILL CONTINUE TO MONITOR.
--- NOTE | 2022-04-23 07:30 | NUR ---
RN MS NOTES PT IN BED, AWAKE, ALERT AND ORIENTED, NO COMPLAIN OF PAIN OR ANY DISCOMFORT AT THIS TIME, RESPIRATIONS NORMAL, CALL LIGHT WITHIN REACH, IV FLUIDS INFUSING WELL, PT FOR DISCHARGE TODAY, NEEDS ATTENDED.
[2022-04-23 07:48] LABS: C-REACTIVE PROTEIN 0.9 mg/dL (0.0-0.9)
[2022-04-23 08:00] VITALS: BP 107/58
[2022-04-23] MEDS ORDERED: CEFEPIME 2 GM in IV D5W 100 ML IV SCH (11:00)
--- NOTE | 2022-04-23 13:10 | NUR ---
OPERATIONS MGR NOTE PATIENT DISCHARGED FROM UNIT TO HOME @ 1300. PICKED UP BY FAMILY MEMBER. DISCHARGE INSTRUCTIONS AND PATIENT EDUCATION GIVEN PRIOR TO LEAVE. PATIENT VERBALIZED UNDERSTANDING OF TEACHING. WAS ABLE TO AMBULATE W/ ASSIST TO/FROM BATHROOM WELL THROUGHOUT BEDROOM. AMBULATES WELL TO WHEELCHAIR AND VEHICLE. PATIENT ADVISED TO F/U W/ PCP. MEDICATION ORDERS SENT TO PATIENT PHARMACY OF CHOICE.
== END 2022-04-23 13:00 | disposition home or self-care (01) | DRG 263 ==
LOC: ER 15:13 → MED 04-16 00:51
PROVIDERS: ADMIT Internal Medicine; ATTEND Nurse Practitioner Acute Care
PROC: 0F798ZZ Dilation of Common Bile Duct, Via Natural or Artificial Opening Endoscopic (ICD-10-PCS; principal; 2022-04-19)
PROC: 0FT44ZZ Resection of Gallbladder, Percutaneous Endoscopic Approach (ICD-10-PCS; 2022-04-21)
PROC: 0DTJ4ZZ Resection of Appendix, Percutaneous Endoscopic Approach (ICD-10-PCS; 2022-04-21)
DX: K80.60 Calculus of gallbladder and bile duct with cholecystitis, unspecified, without obstruction (principal); K35.80 Unspecified acute appendicitis; N39.0 Urinary tract infection, site not specified; R74.01 Elevation of levels of liver transaminase levels; Z20.822 Contact with and (suspected) exposure to COVID-19; K66.0 Peritoneal adhesions (postprocedural) (postinfection); Z82.49 Family history of ischemic heart disease and other diseases of the circulatory system; Z83.3 Family history of diabetes mellitus; E80.6 Other disorders of bilirubin metabolism; Z79.899 Other long term (current) drug therapy
CPT/HCPCS: 36415; 74018; 74181-TC; 76705-TC; 80048-TC; 80053-TC; 80076-TC; 81001; 82150-TC; 83690-TC; 83735-TC; 84100-TC; 84703-TC; 85025-TC; 85610-TC; 85730-TC; 86140-TC; 86850-TC; 87081-TC; 87086-TC; A6209; C2617; C9803; G0378; J0330; J0690; J0692; J0696; J1100; J1170; J1644; J1885; J2270; J2370; J2405; J2704; J3490; J7030; J7060; J7120; Q9966